=== PATIENT | female | born 1950 | race Caucasian/White ===

== ENCOUNTER → 2016-09-20 | Outpatient (CLI) | payer BC ==
--- NOTE | 2016-09-20 10:03 | USB ---
Reason for exam: follow-up at short interval from prior study. History: Patient is postmenopausal and is nulliparous. Family history of breast cancer in paternal aunt at age 80. Benign cyst aspiration of the right breast, November 11, 2003. Benign stereotactic core biopsy of the right breast, April 06, 1999. Core biopsy of the right breast. Excisional biopsy of the left breast. Excisional biopsy of the right breast. Took hormonal contraceptives for 5 years. Physical Findings: Nurse did not find any significant physical abnormalities on exam. US Breast RT Right breast ultrasound includes all four quadrants, the retroareolar region and axilla. Finding demonstrates a 0.3 x 0.2 x 0.3cm lesion too small to characterize at 2 o'clock versus 4 x 3 x 3mm previously, probably collapsing cyst, a 0.8 x 0.5 x 0.7cm mixed lesion at 9 o'clock versus 1.2 x 0.6 x 0.8cm, smaller now suggesting a benign etiology likely a cyst cluster, a 0.7 x 0.3 x 0.6cm cystic lesion at 11 o'clock versus 8 x 4 x 5mm previously and a 0.8 x 0.6 x 0.9cm solid lesion at the nipple for which a biopsy is recommended. These results were verbally communicated with the patient and result sheet given to the patient on 09/20/16. ASSESSMENT: Suspicious, BI-RAD 4 RECOMMENDATION: Surgical consultation and ultrasound core biopsy of the right breast. (subareolar) Called with mammographic findings and has scheduled an appointment for the patient for 09/27/16 at 2:[address] Horner. PRELIMINARY REPORT CALLED AND FAXED TO DR. HORNER ON 09/20/16 AT 300/TMP.
== END | disposition home or self-care (01) ==
LOC: RADUSWWP 08:47
PROVIDERS: ATTEND Surgery
DX: N60.09 Solitary cyst of unspecified breast (principal)

== ENCOUNTER → 2016-10-17 | Day surgery (SDC) | payer BC ==
[2016-10-17 11:36] VITALS: RESP 16; TEMP 98.2; BMI 27.1
[2016-10-17 13:06] VITALS: BP 134/77; PULSE 88
--- NOTE | 2016-10-17 13:22 | USB ---
EXAMINATION TYPE: US biopsy breast VAD RT, MG diagnostic mammo RT wo CAD DATE OF EXAM: 10/17/2016 CLINICAL HISTORY: N63 Breast Mass. History of breast discharge. Abnormal ultrasound. TECHNIQUE: Ultrasound guided core biopsy of right breast with clip placement and follow-up two-view mammogram. COMPARISON: Right breast ultrasound September 20, 2016 and older studies. FINDINGS: The procedure of ultrasound guided core biopsy was explained to the patient. Benefits, alternatives, and risks were discussed. An informed consent was then obtained. The patient was placed in supine positioning for imaging and for the procedure. Preprocedure imaging redemonstrates a vague hyperechoic area behind the nipple. The overlying skin was prepped and draped in usual sterile fashion. Lidocaine was used as anesthetic into the skin. Lidocaine with epinephrine is used as anesthetic into the deeper tissue. A dylan was made with surgical scalpel. Under ultrasound guidance, a 12-gauge vacuum assisted biopsy gun device was used to obtain 3 core samples. Following this, a biopsy clip was left in lesion. The patient tolerated the procedure well without any immediate complication. The patient was kept in the radiology department for short stay after the procedure and then discharged home in stable condition. Postprocedure mammogram shows successful deployment of clip subareolar region right breast. IMPRESSION: Successful, uncomplicated ultrasound guided core biopsy of area of concern in the right breast, full pathology results to follow. Low index of suspicion noted at time of procedure. Pathology Results: Benign BREAST, RIGHT, CORE BIOPSY: FIBROCYSTIC CHANGES INCLUDING CYSTS AND FIBROSIS. Recommendation Follow up mammogram of the right breast in 6 months. ALMA
== END ==
LOC: RADUSWWP 11:07
PROVIDERS: ATTEND Surgery
DX: N60.11 Diffuse cystic mastopathy of right breast (principal); N60.31 Fibrosclerosis of right breast
CPT/HCPCS: 88305; 19083; G0206; A4648; J2001

== ENCOUNTER → 2017-05-01 | Outpatient (CLI) | payer MEDICARE, BC ==
--- NOTE | 2017-05-02 10:02 | MM ---
Reason for exam: follow-up at short interval from prior study. Last mammogram was performed 6 months ago. History: Patient is postmenopausal and is nulliparous. Family history of breast cancer in paternal aunt at age 80. Benign US biopsy breast VAD RT of the right breast, October 17, 2016. Benign cyst aspiration of the right breast, November 11, 2003. Benign stereotactic core biopsy of the right breast, April 06, 1999. Core biopsy of the right breast. Excisional biopsy of the left breast. Excisional biopsy of the right breast. Took hormonal contraceptives for 5 years. Physical Findings: Nurse did not find any significant physical abnormalities on exam. MG 3D Diag Mammo W/Cad RT CC and MLO view(s) were taken of the right breast. Prior study comparison: October 17, 2016, right breast MG diagnostic mammo RT wo CAD. September 20, 2016, right breast US breast RT. March 28, 2016, right breast US breast RT. September 24, 2014, bilateral MG diagnostic mammo w CAD [facility]. August 14, 2013, CAD bilateral diagnostic mammogram. November 23, 2010, CAD bilateral diagnostic mammogram. The breast tissue is heterogeneously dense. This may lower the sensitivity of mammography. There are benign appearing well circumscribed right breast masses stable or smaller in size in comparison to prior exams some represent clusters of cysts or cysts sonographically. No suspicious abnormality. Post biopsy change on the right breast. These results were verbally communicated with the patient and result sheet given to the patient on 05/01/17. ASSESSMENT: Benign, BI-RAD 2 RECOMMENDATION: Routine screening mammogram of both breasts. (Patient is due not for a left screening mammogram)
== END | disposition home or self-care (01) ==
LOC: RADMAMWWP 12:57
PROVIDERS: ATTEND Surgery
DX: R92.8 Other abnormal and inconclusive findings on diagnostic imaging of breast (principal)
CPT/HCPCS: G0206; G0279

== ENCOUNTER → 2018-09-19 | Outpatient (CLI) | payer MEDICARE ==
--- NOTE | 2018-09-19 08:42 | MM ---
Reason for exam: additional evaluation requested from prior study. Last mammogram was performed 1 year and 5 months ago. History: Patient is postmenopausal and is nulliparous. Family history of breast cancer in paternal aunt at age 80. Benign US biopsy breast VAD RT of the right breast, October 17, 2016. Benign cyst aspiration of the right breast, November 11, 2003. Benign stereotactic core biopsy of the right breast, April 06, 1999. Core biopsy of the right breast. Excisional biopsy of the left breast. Excisional biopsy of the right breast. Took hormonal contraceptives for 5 years. Physical Findings: Nurse did not find any significant physical abnormalities on exam. MG 3D Diag Mammo W/Cad [facility] Bilateral CC and MLO view(s) were taken. Prior study comparison: May 01, 2017, right breast MG 3d diag mammo w/cad RT. October 17, 2016, right breast MG diagnostic mammo RT wo CAD. The breast tissue is heterogeneously dense. This may lower the sensitivity of mammography. No significant new findings when compared with previous films. These results were verbally communicated with the patient and result sheet given to the patient on 09/19/18. ASSESSMENT: Benign, BI-RAD 2 RECOMMENDATION: Routine screening mammogram of both breasts in 1 year.
== END | disposition home or self-care (01) ==
LOC: RADMAMWWP 07:36
PROVIDERS: ATTEND Obstetrics & Gynecology
DX: R92.8 Other abnormal and inconclusive findings on diagnostic imaging of breast (principal)
CPT/HCPCS: 77066; G0279; 77062

== ENCOUNTER → 2019-07-21 | Day surgery (SDC) | payer MEDICARE ==
[2019-07-17 12:09] VITALS: BMI 27.4
[~2019-07-21] MED LIST: LACTATED RINGERS 1,000 ML IV SCH; LIDOCAINE 1% (10MG/ML) FOR IV START INTRADERMA ONE; PROPOFOL 10 MG/ML 20 ML VIAL IV ONE; fentaNYL (PF) 50 MCG/ML 2 ML AMP IVP ONE
[2019-07-21 09:10] VITALS: TEMP 97.2
[2019-07-21 10:22] VITALS: RESP 17
--- NOTE | 2019-07-21 10:23 | P.PCN ---
Date of Procedure: 07/21/19 Description of Procedure: BRIEF HISTORY: Patient is a 68-year-old female who presents for outpatient colonoscopy for screening for malignant neoplasm of the colon. Reports last colonoscopy was 5 years ago with one polyp removed. Denies any blood per rectum but does report increasing frequency of bowel movements approximately 3-4 per day. Mother diagnosed with colon cancer in her 80s. PROCEDURE PERFORMED: Colonoscopy with polypectomy and biopsy. PREOPERATIVE DIAGNOSIS: Screening for malignant neoplasm the colon, last colonoscopy 5 years ago with polypectomy, mother diagnosed with colon cancer in her 80s. ESTIMATED BLOOD LOSS: Minimal. IV sedation per Anesthesia. PROCEDURE: After informed consent was obtained, the patient, was brought into the endoscopy unit. IV sedation was administered by Anesthesia under continuous monitoring. Digital rectal examination was normal. Initially the Olympus CF-190 flexible video colonoscope was then inserted in the rectum, gradually advanced into the cecum without any difficulty. Careful examination was performed as the scope was gradually being withdrawn. Ileocecal valve and the appendiceal orifice were visualized and appeared normal. Prep was excellent. Mucosa of the cecum, ascending colon, transverse colon, descending colon, sigmoid colon, and rectum appeared normal. Diminutive polyps measuring 1-2 mm removed from the cecum, ascending colon, and transverse colon with cold forcep polypectomy. Flat 9 mm hepatic flexure polyp removed with cold snare polypectomy. Random biopsies of the right and left colon the setting of her bowel function. Retroflexion was performed in the rectum and no lesions were seen. The patient tolerated the procedure well. IMPRESSION: 3 diminutive polyps removed with cold forceps from the cecum, ascending colon and transverse colon. Flat hepatic flexure polyp removed with cold snare polypectomy. Random biopsies of the right and left colon in the setting of altered bowel function. RECOMMENDATIONS: Findings of this examination were discussed with the patient and her . Okay to resume diet. Okay to resume medications. Await pathology from polypectomies and biopsies. Would recommend repeat colonoscopy in 3 years for high risk colon polyps.
[2019-07-21 10:31] VITALS: BP 140/77; PULSE 88
== END ==
LOC: ORWHC2ENDO 08:48
PROVIDERS: ATTEND Internal Medicine
DX: D12.2 Benign neoplasm of ascending colon (principal); D12.0 Benign neoplasm of cecum; D12.3 Benign neoplasm of transverse colon; K63.5 Polyp of colon; Z86.010 Personal history of colon polyps; Z80.0 Family history of malignant neoplasm of digestive organs; Z79.899 Other long term (current) drug therapy; Z79.1 Long term (current) use of non-steroidal anti-inflammatories (NSAID); Z98.890 Other specified postprocedural states; E78.5 Hyperlipidemia, unspecified; F41.9 Anxiety disorder, unspecified; K21.9 Gastro-esophageal reflux disease without esophagitis; Z87.81 Personal history of (healed) traumatic fracture
CPT/HCPCS: 88305; 45380; 45385; J3010; J2704

== ENCOUNTER → 2021-08-24 | Outpatient (CLI) | payer MEDICARE ==
--- NOTE | 2021-08-28 11:43 | MM ---
Reason for exam: screening (asymptomatic). Last mammogram was performed 2 years and 11 months ago. History: Patient is postmenopausal and is nulliparous. Family history of breast cancer in paternal aunt at age 80. Benign US biopsy breast VAD RT of the right breast, October 17, 2016. Benign cyst aspiration of the right breast, November 11, 2003. Benign stereotactic core biopsy of the right breast, April 06, 1999. Core biopsy of the right breast. Excisional biopsy of the left breast. Excisional biopsy of the right breast. Took hormonal contraceptives for 5 years. Physical Findings: A clinical breast exam by your physician is recommended on an annual basis and results should be correlated with mammographic findings. MG 3D Screening Mammo W/Cad Bilateral CC and MLO view(s) were taken. Prior study comparison: September 19, 2018, bilateral MG 3d diag mammo w/cad [facility]. May 01, 2017, right breast MG 3d diag mammo w/cad RT. The breast tissue is extremely dense which could obscure a lesion on mammography. Previous mammotome biopsy in the right breast. No significant changes when compared with prior studies. ASSESSMENT: Benign, BI-RAD 2 RECOMMENDATION: Routine screening mammogram of both breasts in 1 year.
== END | disposition home or self-care (01) ==
LOC: RADMAMWWP 13:37
PROVIDERS: ATTEND Family Medicine
DX: Z12.31 Encounter for screening mammogram for malignant neoplasm of breast (principal); Z78.0 Asymptomatic menopausal state; Z80.3 Family history of malignant neoplasm of breast
CPT/HCPCS: 77063; 77067

== ENCOUNTER → 2022-08-08 | Outpatient (CLI) | payer MEDICARE ==
--- NOTE | 2022-08-08 10:05 | MM ---
Reason for Exam: Clinical finding. Last screening mammogram was performed 12 month(s) ago. Indicated Problems: Bloody discharge of the right side for 2 Week(s). Patient History: Menarche at age 13. Patient has no children. Postmenopausal. Patient used Hormonal Contraceptives for 5 years. Core Biopsy on the Right side. Excisional Biopsy on the Right side. Excisional Biopsy on the Left side. 10/17/2016, Benign Core Biopsy on the right side. 11/11/2003, Benign Cyst Aspiration on the right side. 04/06/1999, Benign Stereotactic Core Biopsy on the right side. Paternal aunt had breast cancer, age 80. Risk Values: Malina 5 year model risk: 2.9%. NCI Lifetime model risk: 8.3%. Prior Study Comparison: 09/24/2014 Bilateral Diagnostic Mammogram, [facility]. 10/17/2016 Right Diagnostic Mammogram, [facility]. 05/01/2017 Right Diagnostic Mammogram, [facility]. 09/19/2018 Bilateral Diagnostic Mammogram, [facility]. 08/24/2021 Bilateral Screening Mammogram, [facility]. Tissue Density: The breast tissue is heterogeneously dense. This may lower the sensitivity of mammography. Findings: Analyzed By CAD. Mammotome biopsy clip near the right nipple is redemonstrated. There are scattered benign-appearing calcifications bilaterally redemonstrated. No suspicious new mass or distortion in either breast. Left mammogram performed at time of visit because patient was due for bilateral mammogram. Overall Assessment: Incomplete: need additional imaging evaluation, BI-RAD 0 Management: Diagnostic Breast Ultrasound of the right breast. Right breast ultrasound due to bloody nipple discharge. Results were given to the patient verbally at the time of exam. Electronically signed and approved by: Dalton Mark M.D.
--- NOTE | 2022-08-08 10:09 | USB ---
Reason for Exam: Clinical finding. Patient History: Menarche at age 13. Patient has no children. Postmenopausal. Patient used Hormonal Contraceptives for 5 years. Core Biopsy on the Right side. Excisional Biopsy on the Right side. Excisional Biopsy on the Left side. 10/17/2016, Benign Core Biopsy on the right side. 11/11/2003, Benign Cyst Aspiration on the right side. 04/06/1999, Benign Stereotactic Core Biopsy on the right side. Paternal aunt had breast cancer, age 80. Risk Values: Malina 5 year model risk: 2.9%. NCI Lifetime model risk: 8.3%. Technique: Method: Targeted. Prior Study Comparison: 05/01/2017 Right Diagnostic Mammogram, [facility]. 09/19/2018 Bilateral Diagnostic Mammogram, [facility]. 08/24/2021 Bilateral Screening Mammogram, [facility]. Findings: The axilla of the right breast and the retroareolar of the right breast were scanned. Targeted ultrasound shows known mammotome biopsy clip. At 2:00 position there is 8 x 6 x 8 mm round anechoic lesion with increased through transmission thought to reflect simple thin-walled cyst. Overall Assessment: Probably benign, BI-RAD 3 Management: Diagnostic Breast Ultrasound of the right breast in 4 months. Short-term ultrasound follow-up. Advise surgical consultation due to patient's symptoms. Return to routine follow-up for mammogram. Results were given to the patient verbally at the time of exam. Electronically signed and approved by: Dalton Mark M.D.
== END | disposition home or self-care (01) ==
LOC: RADMAMWWP 08:52
PROVIDERS: ATTEND Student in an Organized Health Care Education/Training Program
DX: N64.52 Nipple discharge (principal); Z78.0 Asymptomatic menopausal state; Z80.3 Family history of malignant neoplasm of breast
CPT/HCPCS: 77066; 76642; G0279; 77062

== ENCOUNTER → 2022-08-14 | Outpatient (CLI) | payer MEDICARE ==
--- NOTE | 2022-08-14 13:47 | BD ---
EXAMINATION TYPE: Axial Bone Density DATE OF EXAM: 08/14/2022 CLINICAL HISTORY: 71 years old Female. ICD-10 CODE: N951 HARPREET/POST HARPREET : Height: 5'2 1/2 Weight: 157 FRAX RISK QUESTIONS: History of Fracture in Adulthood: y Secondary Osteoporosis: RISK FACTORS HISTORY OF: Family History of Osteoporosis: y Postmenopausal woman: y MEDICATIONS: Additional Medications: statin, cholesterol, migraine , xanax Additional History: EXAM MEASUREMENTS: Bone mineral densitometry was performed using the [employer] System. Bone mineral density as measured about the Lumbar spine is: ----- L1-L4(G/cm2): 1.214 T Score Values are as follows: ----- L1: -0.2 ----- L2: 0.0 ----- L3: 1.0 ----- L4: 0.0 ----- L1-L4: 0.3 Z Score Values are as follows: ----- L1: 1.3 ----- L2: 1.5 ----- L3: 2.5 ----- L4: 1.5 ----- L1-L4: 1.8 Bone mineral density has: Increased 2.8%since study of: 11/23/2010 Bone mineral density about the R hip (g/cm2): 0.987 Bone mineral density about the L hip (g/cm2): 1.025 T Score values are as follows: -----R Neck: -1.3 -----L Neck: -1.0 -----R Total: -0.2 -----L Total: 0.1 Z Score values are as follows: -----R Neck: 0.2 -----L Neck: 0.6 -----R Total: 1.2 -----L Total: 0.1 Bone mineral density has: Increased 5.9%since study of: 11/23/2010 FRAX: The graph provided illustrates a 15.1% chance for major osteoporotic fx and a 2.0% chance for t he hips probability for fx in 10 years time. IMPRESSION: Osteopenia (T Score between -2.5 and -1). There is slightly increased risk of fracture and the patient may be considered for treatment. Re-Screen 2-5 years. NOTE: T-SCORE=SD OF THE YOUNG ADULT MEAN.
== END | disposition home or self-care (01) ==
LOC: RADBDWWP 12:50
PROVIDERS: ATTEND Student in an Organized Health Care Education/Training Program
DX: M85.89 Other specified disorders of bone density and structure, multiple sites (principal); N64.52 Nipple discharge
CPT/HCPCS: 77080

== ENCOUNTER → 2022-12-25 | Outpatient (CLI) | payer MEDICARE ==
--- NOTE | 2022-12-25 11:53 | USB ---
Reason for Exam: Follow-up at short interval from prior study. Patient History: Menarche at age 13. Patient has no children. Postmenopausal. Patient used Hormonal Contraceptives for 5 years. Core Biopsy on the Right side. Excisional Biopsy on the Right side. Excisional Biopsy on the Left side. 10/17/2016, Benign Core Biopsy on the right side. 11/11/2003, Benign Cyst Aspiration on the right side. 04/06/1999, Benign Stereotactic Core Biopsy on the right side. Paternal aunt had breast cancer, age 80. Risk Values: Malina 5 year model risk: 2.9%. NCI Lifetime model risk: 7.9%. Technique: Method: Targeted. Prior Study Comparison: 09/19/2018 Bilateral Diagnostic Mammogram, [facility]. 08/24/2021 Bilateral Screening Mammogram, [facility]. 08/08/2022 Bilateral MG 3D diag mammo w/cad [facility], [facility]. Findings: The medial section of the breast of the right breast, the axilla of the right breast and the retroareolar of the right breast were scanned. Simple cyst right breast 2:00 position 2 cm from the nipple measures 1 cm x 0.8 cm. Prior measurement of 0.8 x 0.6 cm. Subareolar clip from prior biopsy is redemonstrated. No solid masses seen. Managed clinically. Overall Assessment: Benign, BI-RAD 2 Management: Screening Mammogram of both breasts in 8 months. A clinical breast exam by your physician is recommended on an annual basis and results should be correlated with mammographic findings. This exam should not preclude additional follow-up of suspicious palpable abnormalities. Results were given to the patient verbally at the time of exam. Electronically signed and approved by: Shaheed Jackman M.D. Radiologis
== END | disposition home or self-care (01) ==
LOC: RADUSWWP 10:49
PROVIDERS: ATTEND Student in an Organized Health Care Education/Training Program
DX: N64.52 Nipple discharge (principal); R92.8 Other abnormal and inconclusive findings on diagnostic imaging of breast; Z78.0 Asymptomatic menopausal state; Z80.3 Family history of malignant neoplasm of breast

== ENCOUNTER → 2023-09-11 | Outpatient (CLI) | payer MEDICARE ==
--- NOTE | 2023-09-11 11:44 | MM ---
Reason for Exam: Clinical finding. Last mammogram was performed 2 year(s) and 1 month(s) ago. Patient History: Menarche at age 13. Patient has no children. Postmenopausal. Patient used Hormonal Contraceptives for 5 years. Core Biopsy on the Right side. Excisional Biopsy on the Right side. Excisional Biopsy on the Left side. 10/17/2016, Benign Core Biopsy on the right side. 11/11/2003, Benign Cyst Aspiration on the right side. 04/06/1999, Benign Stereotactic Core Biopsy on the right side. Paternal aunt had breast cancer, age 80. Niece had breast cancer. Risk Values: Malina 5 year model risk: 2.9%. NCI Lifetime model risk: 7.9%. Prior Study Comparison: 05/01/2017 Right Diagnostic Mammogram, [facility]. 09/19/2018 Bilateral Diagnostic Mammogram, [facility]. 08/24/2021 Bilateral Screening Mammogram, [facility]. 08/08/2022 Bilateral MG 3D diag mammo w/cad [facility], [facility]. 08/08/2022 Right US breast limited RT, [facility]. 12/25/2022 Right US breast limited RT, [facility]. Tissue Density: The breasts are heterogeneously dense, which may obscure small masses. Findings: Analyzed By CAD. On the left, no significant change. On the right, there are 2 microclip biopsies. There is a 1.4 cm area of circumscribed nodularity medially on the cc view which persists but is not clearly identified on the MLO or lateral views. Calcifications anterior to middle depth appear to represent a combination of regional punctate and some minimal layering calcifications. No definite suspicious calcifications are identified. Lateral asymmetric density posterior depth does not persist. Further ultrasound evaluation is recommended especially in light of the patient's mixed bloody and clear nipple discharge. Overall Assessment: Incomplete: need additional imaging evaluation, BI-RAD 0 Management: Diagnostic Breast Ultrasound of the right breast. Electronically signed and approved by: Agusto Milligan M.D. Radiologist
--- NOTE | 2023-09-11 12:30 | USB ---
Reason for Exam: Additional evaluation requested from prior study. Patient History: Menarche at age 13. Patient has no children. Postmenopausal. Patient used Hormonal Contraceptives for 5 years. Core Biopsy on the Right side. Excisional Biopsy on the Right side. Excisional Biopsy on the Left side. 10/17/2016, Benign Core Biopsy on the right side. 11/11/2003, Benign Cyst Aspiration on the right side. 04/06/1999, Benign Stereotactic Core Biopsy on the right side. Paternal aunt had breast cancer, age 80. Niece had breast cancer. Risk Values: Malina 5 year model risk: 2.9%. NCI Lifetime model risk: 7.9%. Technique: Method: Whole Breast Handheld. Prior Study Comparison: 09/19/2018 Bilateral Diagnostic Mammogram, [facility]. 08/24/2021 Bilateral Screening Mammogram, [facility]. 08/08/2022 Bilateral MG 3D diag mammo w/cad [facility], [facility]. 12/25/2022 Right US breast limited RT, [facility]. Findings: The whole breast of the right breast, the axilla of the right breast and the retroareolar of both breasts were scanned. Complete right breast ultrasound including thinning of the subareolar region and axilla. Ultrasound targeted to the left subareolar region for comparison purposes. On the right: * Dense subareolar tissue with duct ectasia. We note a biopsy in this region back in 2016 that showed fibrocystic change. * Scattered benign cysts are present measuring up to 1.2 cm. * Dense tissues are prominent throughout. * No other solid or cystic lesion or axillary lymphadenopathy. On the left: * Additional density or early tissue is present but without duct ectasia. Overall Assessment: Suspicious, BI-RAD 4 Management: Surgical Consultation of the right breast. For mixed bloody and clear nipple discharge. Results were given to the patient verbally at the time of exam. Electronically signed and approved by: Agusto Milligan M.D. Radiologist
== END | disposition home or self-care (01) ==
LOC: RADMAMWWP 10:48
PROVIDERS: ATTEND Student in an Organized Health Care Education/Training Program
DX: N60.11 Diffuse cystic mastopathy of right breast (principal); N60.41 Mammary duct ectasia of right breast; R92.1 Mammographic calcification found on diagnostic imaging of breast; R92.333 Mammographic heterogeneous density, bilateral breasts; Z80.3 Family history of malignant neoplasm of breast; Z78.0 Asymptomatic menopausal state
CPT/HCPCS: 77066; 76642; G0279; 77062

== ENCOUNTER 2024-01-15 07:47 | Day surgery (SDC) | payer MEDICARE ==
[~2024-01-15 07:47] MED LIST changes: -LACTATED RINGERS 1,000 ML IV SCH; -LIDOCAINE 1% (10MG/ML) FOR IV START INTRADERMA ONE; +LIDOCAINE 1% (10MG/ML) FOR IV START INTRADERMA PRN; +MIDAZOLAM 2 MG/2 ML VIAL IV PRN; -PROPOFOL 10 MG/ML 20 ML VIAL IV ONE; -fentaNYL (PF) 50 MCG/ML 2 ML AMP IVP ONE; +fentaNYL (PF) 50 MCG/ML 2 ML AMP IVP PRN
[2024-01-15] MEDS: IV FLUID CONTINUATION 1,000 ML IV ONE (08:24)
[2024-01-15] MEDS: LACTATED RINGERS 1,000 ML IV SCH (08:25)
[2024-01-15] MEDS: ACETAMINOPHEN TAB 500 MG TAB PO PRN (08:28)
[2024-01-15] MEDS: ONDANSETRON 4 MG/2 ML VIAL IVP ONE (08:28)
[2024-01-15] MEDS: DEXAMETHASONE SOD PHOSPHATE 4 MG/ML 1 ML VIAL IV ONE (08:29)
[2024-01-15] MEDS: HEPARIN SODIUM,PORCINE 5,000 UNIT/ML 1 ML VIAL SQ PRN (08:29)
[2024-01-15] MEDS ORDERED: PROPOFOL 10 MG/ML 20 ML VIAL IV ONE (08:58)
[2024-01-15] MEDS ORDERED: LIDOCAINE 1% INJ 10MG/ML (20 ML MDV) ONE (08:58)
[2024-01-15] MEDS ORDERED: ePHEDrine 50 MG/ML 1 ML VIAL ONE (08:58)
[2024-01-15] MEDS ORDERED: MIDAZOLAM 2 MG/2 ML VIAL ONE (08:58)
[2024-01-15] MEDS ORDERED: fentaNYL (PF) 50 MCG/ML 2 ML AMP ONE (08:58)
[2024-01-15] MEDS: LIDOCAINE 1%-EPI 1:100,000 20 ML VIAL SQ ONE (09:20)
[2024-01-15 09:52] VITALS: RESP 16; TEMP 97.4
--- NOTE | 2024-01-15 10:04 | P.OP ---
Date of Procedure: 01/15/24 Preoperative Diagnosis: Bloody nipple discharge Postoperative Diagnosis: Defer to pathology Procedure(s) Performed: Right breast biopsy Anesthesia: MECHELLE Surgeon: Toñito Horner Estimated Blood Loss (ml): 5 Pathology: none sent Condition: stable Disposition: PACU Description of Procedure: The patient was placed on the operative table in supine position. She received general endotracheal tube anesthesia. H the right breast was prepped and draped you sterile fashion. An incision was made around the nipple. Then using electrocautery the breast tissue was divided off the nipple. And then a breast biopsy performed.. The specimen measured approximately 4 cm diameter. Hemo stasis achieved electrocautery. The skin was then closed with interrupted 3-0 Monocryl suture. Dermabond was applied. Patient tolerated well. Sent to recovery room in stable condition.
[2024-01-15] MEDS: HYDROmorphone 0.5 MG/0.5 ML SYRINGE IVP PRN (10:08)
[2024-01-15] MEDS: IBUPROFEN 600 MG TAB PO STA (11:15)
[2024-01-15 11:42] VITALS: BP 128/57; PULSE 99
== END 2024-01-15 12:21 | disposition home or self-care (01) ==
LOC: OR 07:47
PROVIDERS: ATTEND Surgery
DX: N60.41 Mammary duct ectasia of right breast (principal); N60.21 Fibroadenosis of right breast; N60.81 Other benign mammary dysplasias of right breast; N64.52 Nipple discharge
CPT/HCPCS: 88305; 88341; 88342

== ENCOUNTER 2024-10-12 11:58 | Emergency (ER) | payer MEDICARE ==
[2024-10-12 12:05] VITALS: TEMP 98.1
--- NOTE | 2024-10-12 12:39 | ED ---
General Adult HPI - General Chief complaint: Chest Pain Stated complaint: chest pain Time Seen by Provider: 10/12/24 12:15 Source: patient, EMS, RN notes reviewed, old records reviewed Mode of arrival: EMS Limitations: no limitations - History of Present Illness Initial comments: Patient is a 73-year-old female with past medical history markable for hyperlipidemia presents emergency department with atypical sounding chest pain. 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 Systolics were in the 150s and 160s. She states she had that she awoke this morning and had some chest discomfort over the right side of her chest. Difficult to describe, describes it as an achy sensation that relatively fully resolves after taking a Xanax. She does have a history of anxiety. States she was having some paresthesias in her right fingertips and hand. No other symptoms. No diaphoresis. No nausea or vomiting. No left-sided chest pain. No radiation of the discomfort. Currently has no symptoms but wanted to be evaluated. No history of cardiac disease, hypertension, CAD to her knowledge. No recent long distance travel. No lower extremity edema. No shortness of breath. No fevers or chills. Patient is resting comfortably at this time. Took 325 mg of aspirin prior to arrival. Presents for further evaluation. Symptoms this morning were at approximately 9:30 AM. I evaluated the patient shortly after 12:00. Symptoms lasted for 1 or 2 minutes at most. - Related Data Home Medications Medication Instructions Recorded Confirmed ALPRAZolam [Xanax] 0.25 mg PO BID PRN 10/17/16 10/12/24 Ezetimibe [Zetia] 10 mg PO HS 07/17/19 10/12/24 Rosuvastatin [Crestor] 10 mg PO HS 06/22/22 10/12/24 SUMAtriptan succinate [Imitrex] 6 mg SQ DAILY PRN 10/12/24 10/12/24 Previous Rx's Medication Instructions Recorded amLODIPine [Norvasc] 5 mg PO DAILY PRN #14 tab 10/12/24 Allergies Allergy/AdvReac Type Severity Reaction Status Date / Time Iodinated Contrast Media Allergy lip Verified 10/12/24 15:43 swelling Review of Systems ROS Statement: Those systems with pertinent positive or pertinent negative responses have been documented in the HPI. Review of Systems: CONST: Denies fever EYES: Denies blurry vision ENT: Denies nasal congestion C/V: Denies Chest pain RESP: Denies shortness of breath GI: Denies abdominal pain : Denies dysuria SKIN: Denies rash. MSK: Denies joint pain. NEURO: Denies headache ROS Other: All systems not noted in ROS Statement are negative. Past Medical History Past Medical History: GERD/Reflux, Hyperlipidemia, Osteoarthritis (OA) Additional Past Medical History / Comment(s): migraines, hx. colon polyps, colon abscess Sept. 2021; intermittent spontaneous right nipple discharge x 2 yrs. History of Any Multi-Drug Resistant Organisms: None Reported Past Surgical History: Breast Surgery, Orthopedic Surgery Additional Past Surgical History / Comment(s): right breast-cyst asp benign 2003, benign stereo 1998, right/left breast [id number]. ORIF left ankle & then hardware removed 40 yrs ago Past Anesthesia/Blood Transfusion Reactions: No Reported Reaction, Family History of Problems w/ Anesthesia Additional Past Anesthesia/Blood Transfusion Reaction / Comment(s): gets migraines if goes long periods without eating; sister has allergies to certain anesthesia Past Psychological History: Anxiety, Depression Smoking Status: Never smoker Past Alcohol Use History: None Reported Past Drug Use History: None Reported - Past Family History Mother Family Medical History: Cancer Additional Family Medical History / Comment(s): Colon Sister(s) Family Medical History: Cancer Additional Family Medical History / Comment(s): Colon General Exam - General Exam Comments Initial Comments: General: Appears in no acute distress. HEAD: Normal with no signs of head trauma. EYES: PERRLA, EOMI, conjunctiva normal, no discharge. ENT: Hearing grossly intact, normal oropharynx. RESPIRATORY: Clear breath sounds bilaterally. No wheezes, rales, or rhonchi. C/V: Regular rate and rhythm. S1 and S2 auscultated, no edema, peripheral pulses 2+ and intact throughout ABD: Abd is soft, nontender, nondistended EXT: Normal range of motion, no obvious deformity SKIN: No rashes or lesions observed on exposed skin. NEURO: Alert and oriented x 4. Cranial nerves II-XII intact. No focal sensory or strength deficits. NIH is 0. No discernible neurological deficits on exam. No decreased sensation to light touch anywhere. Patient does state subjective paresthesias to the right fingertips and hand. Limitations: no limitations Course Vital Signs 10/12/24 10/12/24 10/12/24 12:00 12:06 12:56 Temperature 98.1 F Pulse Rate 72 70 Pulse Rate [ 68 Rack Puncher ] Respiratory 18 16 Rate Blood Pressure 167/82 136/72 O2 Sat by Pulse 96 Oximetry 10/12/24 16:18 Temperature Pulse Rate 74 Pulse Rate [ Rack Puncher ] Respiratory 18 Rate Blood Pressure 129/80 O2 Sat by Pulse 99 Oximetry Medical Decision Making - Medical Decision Making Was pt. sent in by a medical professional or institution (, PA, ASP NET C DEVELOPER, urgent care, hospital, or [facility]...) When possible be specific @ -No Did you speak to anyone other than the patient for history (EMS, parent, family, police, friend...)? What history was obtained from this source @ -No Did you review nursing and triage notes (agree or disagree)? Why? @ -I reviewed and agree with nursing and triage notes Were old charts reviewed (outside hosp., previous admission, EMS record, old EKG, old radiological studies, urgent care reports/EKG's, [facility] records)? Report findings @ -No prior EKG for comparison. Differential Diagnosis (chest pain, altered mental status, abdominal pain women, abdominal pain men, vaginal bleeding, weakness, fever, dyspnea, syncope, headache, dizziness, GI bleed, back pain, seizure, CVA, palpatations, mental health, musculoskeletal)? @ -Differential Chest Pain: Stable Angina, Unstable Angina, STEMI, NSTEMI Aortic Dissection, Pneumothorax, Musculoskeletal, Esophageal Spasm GERD, Cholecystitis, Pancreatitis, Zoster, this is not meant to be an all-inclusive list. EKG interpreted by me (3pts min.). @ -As above X-rays interpreted by me (1pt min.). @ -Chest x-ray shows no obvious acute cardiopulmonary process. CT interpreted by me (1pt min.). @ -None done U/S interpreted by me (1pt. min.). @ -None done What testing was considered but not performed or refused? (CT, X-rays, U/S, labs)? Why? @ -None What meds were considered but not given or refused? Why? @ -None Did you discuss the management of the patient with other professionals (professionals i.e. , PA, ASP NET C DEVELOPER, lab, RT, psych nurse, socially responsible investment adviser, dynamiter, teacher, police liaison officer, continuous pillowcase cutter)? Give summary @ -No Was smoking cessation discussed for >3mins.? @ -No Was critical care preformed (if so, how long)? @ -No Were there social determinants of health that impacted care today? How? (Homelessness, low income, unemployed, alcoholism, drug addiction, transportation, low edu. Level, literacy, decrease access to med. care, shelter, rehab)? @ -No Was there de-escalation of care discussed even if they declined (Discuss DNR or withdrawal of care, Hospice)? DNR status @ -No What co-morbidities impacted this encounter? (DM, HTN, Smoking, COPD, CAD, Cancer, CVA, ARF, Chemo, Hep., AIDS, mental health diagnosis, sleep apnea, morbid obesity)? @ -None Was patient admitted / discharged? Hospital course, mention meds given and route, prescriptions, significant lab abnormalities, going to OR and other pertinent info. @ -Patient presents with atypical chest pain. Currently symptom-free. Vitals within acceptable limits. We will obtain cardiopulmonary workup. She already took 325 mg of aspirin prior to arrival. She will be given a 1 L fluid bolus. She was in agreement this plan. EKG shows no signs of acute ischemia.Patient's blood work remarkable for undetectable troponin, D-dimer within normal limits. Remainder the patient's labs are unremarkable. Chest x-ray unremarkable. After the patient. She naya symptom-free. We discussed her workup. She does have 1 or 2 risk factors and was discussed admission versus repeat troponin and EKG. She elected for repeat troponin and EKG. 3-hour troponin remains undetectable and EKG unchanged. I updated the patient. We discussed options. We did ultimately jointly decided to discharge home with close follow-up. She remains asymptomatic. She has had 2 negative troponins while here in the department as well as 2 EKGs showing no signs of acute ischemia. She will be discharged home with instructions follow- up with cardiology as well as her PCP. She will be given a small prescription for Norvasc 5 mg to be taken only as needed if systolic blood pressures are greater than 160. She can take at most 1/day. She expressed understanding. Recommend she follow-up with her PCP in the next 1 to 3 days. Strict return precautions discussed. Discussed keeping a blood pressure log. Discussed symptoms seem related more to anxiety and stress, and that are atypical in nature. She has not had symptoms her entire time here in the department. I will provide the patient with a prescription for Norvasc as needed. I instructed the patient to follow up with their PCP in the next 1-3 days. I provided contact information for follow up with cardiology. I explained that the patient should return to the emergency department if they experience any worsening symptoms. Strict return precautions were discussed with the patient. The patient expressed understanding of these instructions. I answered all questions that the patient had. The patient was discharged home in good condition with their prescriptions and follow up information. Undiagnosed new problem with uncertain prognosis? @ -No Drug Therapy requiring intensive monitoring for toxicity (Heparin, Nitro, Insulin, Cardizem)? @ -No Were any procedures done? @ -No Diagnosis/symptom? @ -Atypical chest pain, hypertension Acute, or Chronic, or Acute on Chronic? @ -Acute Uncomplicated (without systemic symptoms) or Complicated (systemic symptoms)? @ -Uncomplicated Side effects of treatment? @ -None Exacerbation, Progression, or Severe Exacerbation] @ -No Poses a threat to life or bodily function? @ -Unlikely at this time - Lab Data Result diagrams: 10/12/24 12:30 10/12/24 12:30 Lab Results 10/12/24 10/12/24 10/12/24 Range/Units 12:30 12:30 12:30 WBC 7.10 (4.50-10.00) 10*3/uL RBC 4.65 (4.10-5.20) 10*6/uL Hgb 13.8 (12.0-15.0) g/dL Hct 41.2 (37.2-46.3) % MCV 88.6 (80.0-97.0) fL MCH 29.7 (27.0-32.0) pg MCHC 33.5 (32.0-37.0) g/dL Plt Count 204 (140-440) 10*3/uL MPV 9.3 L (9.5-12.2) fL Immature Gran % (Auto) 0.3 % Neutrophils % 57.6 % Lymphocytes % 28.9 % Monocytes % 9.9 % Eosinophils % 2.5 % Basophils % 0.8 % Immature Gran # 0.02 (0.00-0.04) 10*3/uL Neutrophils # 4.09 (1.80-7.70) 10*3/uL Lymphocytes # 2.05 (0.90-5.00) 10*3/uL Monocytes # 0.70 (0.20-1.00) 10*3/uL Eosinophils # 0.18 (0.04-0.35) 10*3/uL Basophils # 0.06 (0.00-0.10) 10*3/uL PT 10.8 (10.0-12.5) sec INR 1.0 (<1.2) APTT 23.9 (22.0-30.0) sec D-Dimer 0.29 (<0.60) mg/L FEU Sodium 140 (137-145) mmol/L Potassium 4.2 (3.5-5.1) mmol/L Chloride 104 (98-107) mmol/L Carbon Dioxide 28 (22-30) mmol/L Anion Gap 8 mmol/L BUN 17 (7-17) mg/dL Creatinine 0.63 (0.52-1.04) mg/dL Est GFR (CKD-EPI)AfAm >90 (>60 ml/min/1.73 sqM) Est GFR (CKD-EPI)NonAf 90 (>60 ml/min/1.73 sqM) Glucose 95 (74-99) mg/dL Calcium 9.5 (8.4-10.2) mg/dL Magnesium 2.1 (1.6-2.3) mg/dL Total Bilirubin 0.4 (0.2-1.3) mg/dL AST 28 (14-36) U/L ALT 31 (4-34) U/L Alkaline Phosphatase 76 (38-126) U/L Troponin I (0.000-0.034) ng/mL NT-Pro-B Natriuret Pep <20 pg/mL Total Protein 7.2 (6.3-8.2) g/dL Albumin 4.6 (3.5-5.0) g/dL Urine Color Urine Appearance (Clear) Urine pH (5.0-8.0) Ur Specific [place] (1.001-1.035) Urine Protein (Negative) Urine Glucose (UA) (Negative) Urine Ketones (Negative) Urine Blood (Negative) Urine Nitrite (Negative) Urine Bilirubin (Negative) Urine Urobilinogen (<2.0) mg/dL Ur Leukocyte Esterase (Negative) 10/12/24 10/12/24 10/12/24 Range/Units 12:30 15:00 15:56 WBC (4.50-10.00) 10*3/uL RBC (4.10-5.20) 10*6/uL Hgb (12.0-15.0) g/dL Hct (37.2-46.3) % MCV (80.0-97.0) fL MCH (27.0-32.0) pg MCHC (32.0-37.0) g/dL Plt Count (140-440) 10*3/uL MPV (9.5-12.2) fL Immature Gran % (Auto) % Neutrophils % % Lymphocytes % % Monocytes % % Eosinophils % % Basophils % % Immature Gran # (0.00-0.04) 10*3/uL Neutrophils # (1.80-7.70) 10*3/uL Lymphocytes # (0.90-5.00) 10*3/uL Monocytes # (0.20-1.00) 10*3/uL Eosinophils # (0.04-0.35) 10*3/uL Basophils # (0.00-0.10) 10*3/uL PT (10.0-12.5) sec INR (<1.2) APTT (22.0-30.0) sec D-Dimer (<0.60) mg/L FEU Sodium (137-145) mmol/L Potassium (3.5-5.1) mmol/L Chloride (98-107) mmol/L Carbon Dioxide (22-30) mmol/L Anion Gap mmol/L BUN (7-17) mg/dL Creatinine (0.52-1.04) mg/dL Est GFR (CKD-EPI)AfAm (>60 ml/min/1.73 sqM) Est GFR (CKD-EPI)NonAf (>60 ml/min/1.73 sqM) Glucose (74-99) mg/dL Calcium (8.4-10.2) mg/dL Magnesium (1.6-2.3) mg/dL Total Bilirubin (0.2-1.3) mg/dL AST (14-36) U/L ALT (4-34) U/L Alkaline Phosphatase (38-126) U/L Troponin I <0.012 <0.012 (0.000-0.034) ng/mL NT-Pro-B Natriuret Pep pg/mL Total Protein (6.3-8.2) g/dL Albumin (3.5-5.0) g/dL Urine Color Colorless Urine Appearance Clear (Clear) Urine pH 6.0 (5.0-8.0) Ur Specific [place] 1.004 (1.001-1.035) Urine Protein Negative (Negative) Urine Glucose (UA) Negative (Negative) Urine Ketones Negative (Negative) Urine Blood Negative (Negative) Urine Nitrite Negative (Negative) Urine Bilirubin Negative (Negative) Urine Urobilinogen <2.0 (<2.0) mg/dL Ur Leukocyte Esterase Negative (Negative) - EKG Data -: EKG Interpreted by Me EKG Comments: 12-lead Electrocardiogram Interpretation Note EKG was reviewed and interpreted by myself. 12-lead ECG performed at 1214 is interpreted by me as revealing normal sinus rhythm at a rate of 64 beats per minute. Cody is normal. MN interval is 173 ms, QRS duration is 90 ms, QTc is 397 ms.. There were no ST or T wave abnormalities to suggest myocardial ischemia or injury. R wave progression across the precordium was satisfactory. By my interpretation this EKG is non-diagnostic for acute ischemia. 12-lead Electrocardiogram Interpretation Note EKG was reviewed and interpreted by myself. 12-lead ECG performed at 1504 is interpreted by me as revealing sinus bradycardia at a rate of 59 beats per minute. Cody is normal. MN interval is 186 ms, QRS duration 74 ms, QTc is 407 ms.. There were no ST or T wave abnormalities to suggest myocardial ischemia or injury. R wave progression across the precordium was satisfactory. By my interpretation this EKG is non-diagnostic for acute ischemia. No dynamic changes when compared with EKG from earlier today. Disposition Clinical Impression: Atypical chest pain, Hypertension Disposition: HOME SELF-CARE Condition: Good Instructions (If sedation given, give patient instructions): Chest Pain (ED), Hypertension (ED) Additional Instructions: Take 1 Norvasc tablet for elevated blood pressure per day. Take only 1 per day at most. Only take as needed if your systolic blood pressure, which is the top number is greater than 160. You can attempt to take your home Xanax first and see if that helps with the blood pressure as we were discussing it could be related to stress and anxiety. Follow-up with your PCP in the next 1 to 3 days. Keep a blood pressure log daily and take your blood pressure at the same time every day. Follow-up with cardiology. Return to the ER for any worsening symptoms. Prescriptions: amLODIPine [Norvasc] 5 mg PO DAILY PRN #14 tab PRN Reason: Hypertension Is patient prescribed a controlled substance at d/c from ED?: No Referrals: Little Desouza MD [Primary Care Provider] - 1-2 days Jann Ng MD [STAFF PHYSICIAN] - 1-2 days Time of Disposition: 16:47
[2024-10-12 12:47] LABS: Basophils # (A) 0.06 10*3/uL (0.00-0.10); Basophils % (A) 0.8 %; Eosinophils # (A) 0.18 10*3/uL (0.04-0.35); Eosinophils % (A) 2.5 %; HCT 41.2 % (37.2-46.3); HGB 13.8 g/dL (12.0-15.0); Lymphocytes # (A) 2.05 10*3/uL (0.90-5.00); Lymphocytes % (A) 28.9 %; MCH 29.7 pg (27.0-32.0); MCHC 33.5 g/dL (32.0-37.0); MCV 88.6 fL (80.0-97.0); Mean Platelet Volume 9.3 fL (9.5-12.2); Monocytes % (A) 9.9 %; Neutrophils # (A) 4.09 10*3/uL (1.80-7.70); Neutrophils % (A) 57.6 %; Platelet Count 204 10*3/uL (140-440); RBC 4.65 10*6/uL (4.10-5.20); RDW 13.8 % (11.5-14.5)
[2024-10-12] MEDS: SODIUM CHLORIDE 0.9% 1,000 ML IV STA (13:01)
[2024-10-12 13:04] LABS: ALT 31 U/L (4-34); AST 28 U/L (14-36); African American GFR (CKD) >90 (>60 ml/min/1.73 sqM); Albumin 4.6 g/dL (3.5-5.0); Alkaline Phosphatase 76 U/L (38-126); Anion Gap 8 mmol/L; Blood Urea Nitrogen 17 mg/dL (7-17); Calcium 9.5 mg/dL (8.4-10.2); Carbon Dioxide 28 mmol/L (22-30); Chloride 104 mmol/L (98-107); Glucose 95 mg/dL (74-99); Magnesium 2.1 mg/dL (1.6-2.3); Non-African American GFR(CKD) 90 (>60 ml/min/1.73 sqM); Potassium 4.2 mmol/L (3.5-5.1); Sodium 140 mmol/L (137-145); Total Bilirubin 0.4 mg/dL (0.2-1.3); Total Protein 7.2 g/dL (6.3-8.2)
[2024-10-12 13:05] LABS: Partial Thromboplastin Time 23.9 sec (22.0-30.0); Prothrombin Time 10.8 sec (10.0-12.5)
[2024-10-12 13:11] LABS: NT-Pro-B-Type Natriuretic Pept <20 pg/mL
--- NOTE | 2024-10-12 13:34 | XR ---
EXAMINATION TYPE: XR chest 2V DATE OF EXAM: 10/12/2024 1:16 PM COMPARISON: 01/16/2011 CLINICAL INDICATION: Female, 73 years old with history of Chest Pain, TECHNIQUE: XR chest 2V view(s) obtained. FINDINGS: The heart size is normal. The pulmonary vasculature is normal. The lungs are clear. IMPRESSION: 1. No acute pulmonary process. [facility], , 10/12/2024 1:32 PM
[2024-10-12 15:42] LABS: Appearance,Urine Clear (Clear); Bilirubin,Urine Negative (Negative); Blood,Urine Negative (Negative); Color,Urine Colorless; Glucose,Urine (UA) Negative (Negative); Ketones,Urine Negative (Negative); Leukocyte Esterase,Urine Negative (Negative); Nitrite,Urine Negative (Negative); Protein,Urine Negative (Negative); Specific Gravity,Urine 1.004 (1.001-1.035); Urobilinogen,Urine <2.0 mg/dL (<2.0)
[2024-10-12 16:19] VITALS: RESP 18
[2024-10-12 17:09] VITALS: BP 147/74; PULSE 61
== END 2024-10-12 17:12 | disposition home or self-care (01) ==
LOC: EC 11:58
DX: R07.89 Other chest pain (principal); I10 Essential (primary) hypertension; Z91.041 Radiographic dye allergy status
CPT/HCPCS: 36415; 71046; 80053; 81003; 83735; 83880; 84484; 85025; 85379; 85610; 85730; 93005; 96360; 99285